=== PATIENT | male | born 1950 | race Caucasian/White ===

== ENCOUNTER 2017-04-13 10:12 | Inpatient (IN) | payer OTHER ==
[~2017-04-13] VITALS: Ht 167.6 cm; Wt 85.1 kg
[2017-04-13] VITALS (10 sets, daily range): BP systolic 103–146; BP diastolic 48–82
[~2017-04-13 10:12] MED LIST: ADVAIR 250/501 EA INH; ALBUTEROL0.09 MG/A1 INH; ALBUTEROL0.09 MG/A2 IH; AMIODARONE PO; ASMANEX TW0.22 MG/A1 IH; ASPIR 8181 MG PO; ASPIRIN DELAYE325 MG PO; ASPIRIN81 M1 PO; CHOLESTEROL PO; CORDROL20 MG PO; CRESTOR40 MG PO; Clopidogrel75 MG PO; FOLIC ACID PO; FOLIC ACID1 MG PO; HEART PILL PO; HYDROCODONE BIT1 T11 PO; LASIX40 MG PO; LISINOPRIL PO; LISINOPRIL5 MG PO; METOPROLOL SUC100 M2 PO; METOPROLOL SUC200 MG PO; NICOTINE PO; OMEPRAZOLE20 MG PO; PENICILLIN250 MG PO; PLAVIX75 MG PO; PREDNISONE10 MG PO; PRILOSEC20 MG PO; SPIRONOLACTONE25 MG PO; STOMACH PILL PO; TIKOSYN0.5 MG PO; WARFARIN2 MG PO; ZITHROMAX250 MG PO; [UNRECOGNIZED DRUG - OTHER] PO
[2017-04-13] MEDS ORDERED: VITAMIN B-11 TAB PO (10:36)
[2017-04-13] MEDS ORDERED: CRESTOR10 M1 PO (10:36)
[2017-04-13] MEDS ORDERED: MAGNESIUM OXID420 M1 PO (10:37)
[2017-04-13] MEDS ORDERED: VITAMIN D50000 UNIT PO (10:38)
[2017-04-13] MEDS ORDERED: ALDACTONE25 M1 PO (10:39)
[2017-04-13 10:46] LABS: BASO # 0.1 10*3/uL (0.0-0.1); BASO % 0.7 % (0.0-1.0); EOS # 0.4 10*3/uL (0.0-0.4); LYMPH # 1.2 10*3/uL (1.3-4.4); LYMPH % 14.2 % (27.0-41.0); MEAN CELL VOLUME 74.8 fl (80.0-94.0); MEAN CORPUSCULAR HGB 22.7 pg (27.0-31.0); MEAN CORPUSCULAR HGB CONC 30.3 g/dl (33.0-37.0); MEAN PLATELET VOLUME 9.2 fl (9.6-12.3); MONO # 0.7 10*3/uL (0.1-1.0); MONO % 8.9 % (3.0-9.0); NEUT # 5.9 10*3/uL (2.3-7.9); PLATELET COUNT AUTOMATED 262 10*3/uL (130-400); RED BLOOD COUNT 4.41 10*6/uL (4.50-5.90); RED CELL DISTRI WIDTH 19.1 % (0-14.5); WHITE BLOOD COUNT 8.3 10*3/uL (4.8-10.8)
[2017-04-13 10:55] LABS: PROTHROMBIN TIME 10.7 SECONDS (9.0-12.4)
[2017-04-13 11:01] LABS: ALKALINE PHOSPHATASE 105 U/L (45-117); BILIRUBIN, TOTAL 0.9 mg/dl (0.2-1.0); BUN 8 mg/dl (7-24); CARBON DIOXIDE 28 mmol/L (21-32); CHLORIDE 96 mmol/L (98-107); CKMB 1.1 ng/ml (0.5-3.6); CPK 105 U/L (39-308); EST GLOM FILT AFRICAN AMERICAN > 60 ml/min; GLUCOSE 98 mg/dL (65-99); MAGNESIUM 1.6 mg/dL (1.5-2.1); POTASSIUM 3.7 mmol/L (3.5-5.1); SGOT/AST 70 IU/L (3-35); SGPT/ALT 84 U/L (12-78); SODIUM 134 mmol/L (136-145); TOTAL PROTEIN 8.2 gm/dL (6.4-8.2)
[2017-04-13 11:03] LABS: TROPONIN I < 0.015 ng/ml (<0.045)
[2017-04-13] MEDS ORDERED: IPRATROPIUM BR2.5 ML INH (15:13)
[2017-04-13] MEDS ORDERED: PROAIR HFA8.5 GM INH (15:14)
[2017-04-13] MEDS ORDERED: Ventolin 02.5 MG/3 M INH (15:15)
[2017-04-13] MEDS ORDERED: ASPIRIN CHEWABL81 MG PO (15:17)
[2017-04-14] VITALS: BP 109/47
[2017-04-14 06:22] LABS: BASO # 0.1 10*3/uL (0.0-0.1); BASO % 0.6 % (0.0-1.0); EOS # 0.5 10*3/uL (0.0-0.4); EOS % 5.7 % (1.0-4.0); HEMATOCRIT 30.5 % (42.0-52.0); HEMOGLOBIN 9.3 g/dl (14.0-18.0); LYMPH # 1.3 10*3/uL (1.3-4.4); LYMPH % 15.6 % (27.0-41.0); MEAN CELL VOLUME 74.8 fl (80.0-94.0); MEAN CORPUSCULAR HGB 22.8 pg (27.0-31.0); MEAN CORPUSCULAR HGB CONC 30.5 g/dl (33.0-37.0); MEAN PLATELET VOLUME 9.2 fl (9.6-12.3); MONO # 0.7 10*3/uL (0.1-1.0); MONO % 8.5 % (3.0-9.0); NEUT # 5.7 10*3/uL (2.3-7.9); NEUT % 69.2 % (47.0-73.0); PLATELET COUNT AUTOMATED 224 10*3/uL (130-400); RED BLOOD COUNT 4.08 10*6/uL (4.50-5.90); RED CELL DISTRI WIDTH 19.2 % (0-14.5); WHITE BLOOD COUNT 8.2 10*3/uL (4.8-10.8)
[2017-04-14 06:28] LABS: PROTHROMBIN TIME 10.8 SECONDS (9.0-12.4)
[2017-04-14 06:43] LABS: ALBUMIN 3.5 gm/dl (3.1-4.5); BILIRUBIN, TOTAL 1.1 mg/dl (0.2-1.0); BUN 11 mg/dl (7-24); CARBON DIOXIDE 27 mmol/L (21-32); CHLORIDE 100 mmol/L (98-107); EST GLOM FILT AFRICAN AMERICAN > 60 ml/min; GLUCOSE 100 mg/dL (65-99); MAGNESIUM 1.6 mg/dL (1.5-2.1); PHOSPHOROUS 3.5 mg/dL (2.5-4.9); SGPT/ALT 68 U/L (12-78); SODIUM 137 mmol/L (136-145); TOTAL PROTEIN 7.1 gm/dL (6.4-8.2); TRIGLYCERIDES 76 mg/dl (<150); VLDL CHOLESTEROL 15 mg/dL (6-40)
[2017-04-14 06:50] LABS: ALKALINE PHOSPHATASE 91 U/L (45-117); CHOLESTEROL 171 mg/dL (<200); HDL CHOLESTEROL 53 mg/dl (40-60); LDL CHOLESTEROL 103 mg/dL (9-159); SGOT/AST 63 IU/L (3-35)
[2017-04-14 08:00] VITALS: BP 128/50
[2017-04-14 09:31] LABS: FOLIC ACID 21.76 ng/mL (>5.38); VITAMIN D, 25-HYDROXY 41.8 ng/mL (30-100)
[2017-04-14 12:00] VITALS: BP 121/76
[2017-04-14 16:00] VITALS: BP 111/63
[2017-04-14 20:00] VITALS: BP 120/78
[2017-04-15] VITALS: BP 119/75
[2017-04-15 06:19] LABS: RETICULOCYTE % 1.87 % (0.50-2.50)
[2017-04-15 06:29] LABS: IRF 25.5 % (2.4-13.3); RET-He 25.5 pg (32.1-37.9)
[2017-04-15 08:00] VITALS: BP 121/66
[2017-04-15] MEDS ORDERED: KEFLEX500 M1 PO (11:50)
[2017-04-15 12:00] VITALS: BP 113/63
[2017-04-15 16:00] VITALS: BP 107/58
[2017-04-15 20:00] VITALS: BP 110/62
[2017-04-16] VITALS: BP 116/65
[2017-04-16 08:00] VITALS: BP 128/69
== END 2017-04-16 12:43 | disposition home or self-care (01) | DRG 603 ==
LOC: ED 10:12 → 4E 13:50 → EDHOLD 13:50 → 4E 14:24
PROVIDERS: Emergency Medicine; Hospitalist; Internal Medicine
DX: L03.115 Cellulitis of right lower limb (principal); I11.0 Hypertensive heart disease with heart failure; E87.1 Hypo-osmolality and hyponatremia; I50.42 Chronic combined systolic (congestive) and diastolic (congestive) heart failure; D50.9 Iron deficiency anemia, unspecified; J44.9 Chronic obstructive pulmonary disease, unspecified; F10.10 Alcohol abuse, uncomplicated; I25.10 Atherosclerotic heart disease of native coronary artery without angina pectoris; K21.9 Gastro-esophageal reflux disease without esophagitis; E78.2 Mixed hyperlipidemia; R74.0 Nonspecific elevation of levels of transaminase and lactic acid dehydrogenase [LDH]; I25.2 Old myocardial infarction; Z90.49 Acquired absence of other specified parts of digestive tract; Z95.5 Presence of coronary angioplasty implant and graft; Z87.891 Personal history of nicotine dependence; Z95.810 Presence of automatic (implantable) cardiac defibrillator; Z79.02 Long term (current) use of antithrombotics/antiplatelets; Z79.899 Other long term (current) drug therapy; Z88.8 Allergy status to other drugs, medicaments and biological substances; Z91.048 Other nonmedicinal substance allergy status; Z82.49 Family history of ischemic heart disease and other diseases of the circulatory system; Z80.8 Family history of malignant neoplasm of other organs or systems

== ENCOUNTER 2017-04-25 15:11 | Emergency (ER) | payer OTHER ==
[~2017-04-25] VITALS: Wt 84.4 kg
[~2017-04-25 15:11] MED LIST changes: +ALDACTONE25 M1 PO; +ASPIRIN CHEWABL81 MG PO; +CRESTOR10 M1 PO; +IPRATROPIUM BR2.5 ML INH; +KEFLEX500 M1 PO; +MAGNESIUM OXID420 M1 PO; +PROAIR HFA8.5 GM INH; +VITAMIN B-11 TAB PO; +VITAMIN D50000 UNIT PO; +Ventolin 02.5 MG/3 M INH
[2017-04-25 15:53] LABS: BASO % 0.5 % (0.0-1.0); EOS # 0.2 10*3/uL (0.0-0.4); EOS % 2.6 % (1.0-4.0); HEMATOCRIT 32.3 % (42.0-52.0); HEMOGLOBIN 9.8 g/dl (14.0-18.0); LYMPH % 11.6 % (27.0-41.0); MEAN CELL VOLUME 75.1 fl (80.0-94.0); MEAN CORPUSCULAR HGB 22.8 pg (27.0-31.0); MEAN CORPUSCULAR HGB CONC 30.3 g/dl (33.0-37.0); MEAN PLATELET VOLUME 9.2 fl (9.6-12.3); MONO # 0.9 10*3/uL (0.1-1.0); MONO % 10.5 % (3.0-9.0); NEUT # 6.3 10*3/uL (2.3-7.9); NEUT % 74.3 % (47.0-73.0); PLATELET COUNT AUTOMATED 313 10*3/uL (130-400); RED CELL DISTRI WIDTH 19.3 % (0-14.5); WHITE BLOOD COUNT 8.5 10*3/uL (4.8-10.8)
[2017-04-25 16:08] LABS: ALBUMIN 3.8 gm/dl (3.1-4.5); ALKALINE PHOSPHATASE 123 U/L (45-117); BILIRUBIN, TOTAL 0.4 mg/dl (0.2-1.0); BUN 11 mg/dl (7-24); CARBON DIOXIDE 29 mmol/L (21-32); CHLORIDE 102 mmol/L (98-107); EST GLOM FILT AFRICAN AMERICAN > 60 ml/min; GLUCOSE 104 mg/dL (65-99); POTASSIUM 3.6 mmol/L (3.5-5.1); SGOT/AST 65 IU/L (3-35); SGPT/ALT 72 U/L (12-78); SODIUM 138 mmol/L (136-145); TOTAL PROTEIN 8.3 gm/dL (6.4-8.2)
[2017-04-25] MEDS ORDERED: CLINDAMYCIN HC300 MG PO (16:46)
== END 2017-04-25 18:11 | disposition home or self-care (01) ==
LOC: ED 15:11
PROVIDERS: Physician Assistant
DX: L03.115 Cellulitis of right lower limb (principal); Z87.891 Personal history of nicotine dependence; Z79.82 Long term (current) use of aspirin; Z79.899 Other long term (current) drug therapy; Z88.6 Allergy status to analgesic agent

== ENCOUNTER 2017-07-14 01:56 | Inpatient (IN) | payer OTHER ==
[~2017-07-14] VITALS: Ht 152.4 cm; Wt 84.1 kg
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
[~2017-07-14 01:56] MED LIST changes: +CLINDAMYCIN HC300 MG PO
[2017-07-14 02:08] VITALS: BP 114/101
[2017-07-14 03:01] LABS: HEMOGLOBIN 14.6 g/dl (14.0-18.0); MEAN CELL VOLUME 84.6 fl (80.0-94.0); MEAN CORPUSCULAR HGB 27.4 pg (27.0-31.0); MEAN CORPUSCULAR HGB CONC 32.4 g/dl (33.0-37.0); MEAN PLATELET VOLUME 9.1 fl (9.6-12.3); PLATELET COUNT AUTOMATED 229 10*3/uL (130-400); RED BLOOD COUNT 5.32 10*6/uL (4.50-5.90); WHITE BLOOD COUNT 10.8 10*3/uL (4.8-10.8)
[2017-07-14 03:23] LABS: ATYPICAL LYMPHS 2 % (0-0); MICROCYTOSIS SLIGHT; PLATELET SUFFICIENCY NORMAL (NORMAL); TARGET CELLS FEW; TOTAL CELLS COUNTED 100 #CELLS
[2017-07-14 03:24] LABS: OVALOCYTES FEW
[2017-07-14 03:26] LABS: ALBUMIN 3.7 gm/dl (3.1-4.5); ALKALINE PHOSPHATASE 117 U/L (45-117); BUN 12 mg/dl (7-24); CHLORIDE 98 mmol/L (98-107); CREATININE 0.89 mg/dL (0.70-1.30); POTASSIUM 3.5 mmol/L (3.5-5.1); SGOT/AST 75 IU/L (3-35); SGPT/ALT 116 U/L (12-78); SODIUM 133 mmol/L (136-145); TOTAL PROTEIN 8.1 gm/dL (6.4-8.2)
[2017-07-14 03:45] VITALS: BP 124/74
--- NOTE | 2017-07-14 03:45 | NUR ---
MSTime: [id number] A 66 year old MALE admitted to 4E under services of ALFREDITO INGRAM DO. Pt. arrived via ambulatory from ER. Chief complaint: INFLAMMED REDDENED FOOT, ANTIBIOTICS NOT WORKING. JEAN CLAUDE SHERWOOD
--- NOTE | 2017-07-14 04:26 | NUR ---
MEDICATION REQUISITION REVIEWED AND MEDICATIONS UPDATED TO PATIENTS BEST KNOWLEGDE. [facility] STATES WILL BE ABLE TO GIVE HIS MEDICATION INFORMATION : [phone]
--- NOTE | 2017-07-14 05:30 | NUR ---
NO WOUND ORDERS PUT IN Y DOCTOR. WOUND CULTURE NOT DONE IN ER THERE IS NO DRAINAGE.
[2017-07-14 05:43] LABS: BUN 12 mg/dl (7-24); CHLORIDE 101 mmol/L (98-107); CHOLESTEROL 151 mg/dL (<200); CREATININE 0.83 mg/dL (0.70-1.30); HDL CHOLESTEROL 39 mg/dl (40-60); LDL CHOLESTEROL 88 mg/dL (9-159); PHOSPHOROUS 3.3 mg/dL (2.5-4.9); POTASSIUM 3.2 mmol/L (3.5-5.1); SODIUM 136 mmol/L (136-145); TRIGLYCERIDES 120 mg/dl (<150); VLDL CHOLESTEROL 24 mg/dL (6-40)
--- NOTE | 2017-07-14 05:45 | NUR ---
DR. SIBLEY AWARE OF LACTIC ACID RESULT.
[2017-07-14 06:11] LABS: ACT PARTIAL THROMBO TIME 24.3 SECONDS (20.8-31.5)
[2017-07-14 06:13] LABS: HEMATOCRIT 40.5 % (42.0-52.0); HEMOGLOBIN 13.2 g/dl (14.0-18.0); MEAN CORPUSCULAR HGB CONC 32.6 g/dl (33.0-37.0); MEAN PLATELET VOLUME 9.5 fl (9.6-12.3); PLATELET COUNT AUTOMATED 212 10*3/uL (130-400); RED BLOOD COUNT 4.71 10*6/uL (4.50-5.90); WHITE BLOOD COUNT 8.3 10*3/uL (4.8-10.8)
[2017-07-14 06:59] LABS: PLATELET SUFFICIENCY NORMAL (NORMAL); TOTAL CELLS COUNTED 100 #CELLS
[2017-07-14 07:46] LABS: VITAMIN D, 25-HYDROXY 39.4 ng/mL (30-100)
[2017-07-14 08:00] VITALS: BP 92/50
--- NOTE | 2017-07-14 10:25 | NUR ---
DEEDEE GORDILLO [id number] Please refer to the physician's history and physical for past medical history, comorbid conditions, and allergies. Diagnosis: CELLULITIS FAILURE OF OP TREATMENT Andrea Score: 22,LOW OR NO RISK WOUND DESCRIPTIONS: Location of the wound: dorsal left foot Type of wound: trauma Thickness: Partial Size: 2.5cm x 1cm x <0.1cm Tunneling: none Undermining: none Sinus Tract: none Presence of Exudate: none Amount: None Color: Red, brown Odor: None Periwound Skin Appearance: Normal Wound edges: scabbed Pain (associated with wound): Tender to touch How does patient state this happened? Patient states he scratched his foot approximately 5 days ago with his fingernail If wound is on legs/feet or hands, capillary refill time, pulses, color temp, sensation: Capillary refill <3 seconds. Pulse present Surface the patient is resting on: Position Pro SKIN PREVENTION RECOMMENDATION: 1. Pressure redistribution support surface as appropriate 2. Elevate heels 3. Remove boots/TEDS every shift and reapply 4. Head of bed 30 degrees as tolerated 5. Assess nutrition and hydration 6. Manage moisture 7. Avoid the use of containment devices while in bed 8. Use absorptive products on surfaces limit layers of linens on bed 9. Turn and reposition every 1-2 hours in bed and every 1 hour in chair as tolerated 10. Weight shifts every 15 minutes while up in chair 11. Offloading with pillows or device to keep heels elevated off bed 12. Monitor skin at least every shift 13. Inspect under medical devices twice a day WOUND TREATMENT RECOMMENDATIONS: Consult Podiatry. Patient stated he follows a data acquisition technician in [place] but was unable to recall the doctor's name. Dr. Macdonald notified of recommendation
[2017-07-14 12:00] VITALS: BP 120/52
[2017-07-14] MEDS ORDERED: METOPROLOL SUC100 M2 PO (15:28)
--- NOTE | 2017-07-14 15:31 | NUR ---
[facility] CALL[facility] TO [facility] LIST. DR GAVIN NOTIFIED. PLACING METOPROLOL ON HOLD.
[2017-07-14 16:00] VITALS: BP 128/64
--- NOTE | 2017-07-14 20:23 | NUR ---
PATIENT MEDICATED WITH PRN NORCO ORDERED FOR C/O LEFT FOOT PAIN RATED A 7
--- NOTE | 2017-07-14 20:25 | NUR ---
PATIENT RESTING COMFORTABLY IN BED. HE IS A&OX3, COOPERATIVE WITH CARE, C/O INTERMITTENT LEFT FOOT PAIN RATED A 7. DENIES ANY SOB, RESPIRATIONS EASY/REG ON RA. FLUIDS MAINTAINED PER ORDER. LEFT FOOT IS RED, SWOLLEN AND WARM TO TOUCH. HE HAS A SCRATCH TO THE TOP OF HIS LEFT FOOT, IT IS SCABBED OVER. CALL LIGHT IS IN REACH.WILL MONITOR.
--- NOTE | 2017-07-14 20:51 | NUR ---
PATIENT REQUESTING NICORETTE GUM. SMOKES 1/2 PPD. NEW ORDERS RECEIVED.
[2017-07-14 21:00] VITALS: BP 116/58
--- NOTE | 2017-07-14 21:30 | NUR ---
EARLIER NORCO EFFECTIVE PER PATIENT
--- NOTE | 2017-07-15 01:12 | NUR ---
24 HR CHART CHECK COMPLETE
--- NOTE | 2017-07-15 02:40 | NUR ---
PATIENT SLEEPING, NO SXS OF DISTRESS. FLUIDS MAINTAINED PER ORDER. CALL LIGHT IN REACH. WILL MONITOR.
--- NOTE | 2017-07-15 06:21 | NUR ---
PATIENT SLEPT T/O SHIFT. NO SXS OF DISTRESS NOTED. FLUIDS MAINTAINED PER ORDER. CALL LIGHT IN REACH.
[2017-07-15 08:00] VITALS: BP 133/63
--- NOTE | 2017-07-15 11:00 | NUR ---
CONSULT CALLED TO DR BELL.
[2017-07-15 16:00] VITALS: BP 144/81
--- NOTE | 2017-07-15 17:00 | NUR ---
DR GAVIN NOTIFIED OF PT REPORTED CHEST PAIN/ PRESSURE TO LEFT SIDE OF CHEST RATED 3-4/10. VITALS REPORTED 145/68, 74 AND 99 % RA.
--- NOTE | 2017-07-15 17:14 | NUR ---
PT GIVEN 325 MG BABY ASPIRIN TO CHEW AND ONE 0.4 MG NITRO TAB FOR 3-4/10 CHEST PAIN. PAIN/PRESSURE RESOLVED COMPLETELY WITHIN 2 MINUTES.
--- NOTE | 2017-07-15 17:30 | NUR ---
ICU REQUEST FOR NEW ULTRASOUND GUIDED IV CATHETER PLACEMENT. PT REPRTS HE IS VERY DIFFICULT TO DRAW LABS ON AND PLACE CATHETERS. ELIER MAGAÑA FROM ICU PLACED NEW CATH TO RIGHT HAND.
--- NOTE | 2017-07-15 21:30 | NUR ---
PATIENT RECLINED IN CHAIR WATCHING FOOTBALL GAMES. NO S/S OF DISTRESS. CALL LIGHT WITHIN REACH. LEFT LEG RED WITH SLIGHT WARMTH, RIGHT LEG/FOOT, SMALL AREA ON TOP OF FOOTTHAT IS DISCOLORED, AREA COOL TO THE TOUCH. ATB GIVEN PER ORDER.
[2017-07-16] VITALS: BP 125/59
--- NOTE | 2017-07-16 01:06 | NUR ---
24 HR chart check completed.
[2017-07-16 08:00] VITALS: BP 146/70
--- NOTE | 2017-07-16 08:15 | NUR ---
24 HR chart check completed.
[2017-07-16 08:43] LABS: HEMATOCRIT 42.4 % (42.0-52.0); HEMOGLOBIN 13.7 g/dl (14.0-18.0); MEAN CELL VOLUME 86.5 fl (80.0-94.0); MEAN CORPUSCULAR HGB CONC 32.3 g/dl (33.0-37.0); MEAN PLATELET VOLUME 9.2 fl (9.6-12.3); PLATELET COUNT AUTOMATED 176 10*3/uL (130-400); WHITE BLOOD COUNT 6.6 10*3/uL (4.8-10.8)
--- NOTE | 2017-07-16 09:00 | NUR ---
Echocardiographer in to talk to patient. Patient states lives at home with alone. There are few steps in the home. Physician: domingo [facility] Home health services: none Patient's level of ADLs: INDEPENDENT Patient has working utilities: all working DME: none Follow-up physician's appointment after d/c: will be made by hospitalist nurse director upon discharge Does patient want to access PORTAL?: no Discharge plan discussed with patient, patient lives at home alone, states he is independent in adls and ambulation, drives, patient states he will be going back home and denies any home needs. SAUNDRA FERNANDEZ
[2017-07-16 09:01] LABS: ALBUMIN 3.4 gm/dl (3.1-4.5); ALKALINE PHOSPHATASE 100 U/L (45-117); BUN 8 mg/dl (7-24); CHLORIDE 107 mmol/L (98-107); CREATININE 0.93 mg/dL (0.70-1.30); POTASSIUM 3.8 mmol/L (3.5-5.1); SGOT/AST 54 IU/L (3-35); SGPT/ALT 90 U/L (12-78); SODIUM 141 mmol/L (136-145); TOTAL PROTEIN 7.2 gm/dL (6.4-8.2); TROPONIN I 0.019 ng/ml (<0.045)
[2017-07-16 09:34] LABS: PLATELET SUFFICIENCY NORMAL (NORMAL); TOTAL CELLS COUNTED 100 #CELLS
--- NOTE | 2017-07-16 11:55 | NUR ---
DR FREEMAN ROUNDED AND STATED IT WAS OK TO D/C PT FROM THEIR STANDPOINT AND HAVE PT CALL FOR APPT FOR F/U IN ONE WEEK.
--- NOTE | 2017-07-16 14:12 | NUR ---
patient's clinicals faxed to Madai case maker at [facility]
[2017-07-16] MEDS ORDERED: DOXYCYCLINE100 M3 PO (15:32)
[2017-07-16 16:00] VITALS: BP 145/77
--- NOTE | 2017-07-16 16:12 | NUR ---
PT REFUSED D/C PHOTOS.
--- NOTE | 2017-07-16 16:55 | NUR ---
Discharge instructions reviewed with patient/family. Patient receptive and verbalizes understanding. Follow-up care arranged. Written instructions given to patient/family. SAVI OSPINA
== END 2017-07-16 17:05 | disposition home or self-care (01) | DRG 603 ==
LOC: ED 01:56 → 4E 02:30 → EDHOLD 02:30 → 4E 02:41
PROVIDERS: Internal Medicine; Student in an Organized Health Care Education/Training Program; ADMIT Internal Medicine
DX: L03.116 Cellulitis of left lower limb (principal); E87.2 Acidosis; E66.01 Morbid (severe) obesity due to excess calories; I50.9 Heart failure, unspecified; I11.0 Hypertensive heart disease with heart failure; E87.1 Hypo-osmolality and hyponatremia; E78.5 Hyperlipidemia, unspecified; I25.10 Atherosclerotic heart disease of native coronary artery without angina pectoris; J44.9 Chronic obstructive pulmonary disease, unspecified; R74.0 Nonspecific elevation of levels of transaminase and lactic acid dehydrogenase [LDH]; K21.9 Gastro-esophageal reflux disease without esophagitis; D64.9 Anemia, unspecified; E87.6 Hypokalemia; F10.10 Alcohol abuse, uncomplicated; E83.41 Hypermagnesemia; Z88.6 Allergy status to analgesic agent; Z91.048 Other nonmedicinal substance allergy status; Z79.899 Other long term (current) drug therapy; I25.2 Old myocardial infarction; Z95.0 Presence of cardiac pacemaker; Z95.5 Presence of coronary angioplasty implant and graft; Z87.891 Personal history of nicotine dependence; Z82.49 Family history of ischemic heart disease and other diseases of the circulatory system; Z80.8 Family history of malignant neoplasm of other organs or systems; Z79.82 Long term (current) use of aspirin; Z68.36 Body mass index [BMI] 36.0-36.9, adult

== ENCOUNTER → 2017-07-20 | Outpatient (CLI) | payer OTHER ==
[~2017-07-20] MED LIST changes: +DOXYCYCLINE100 M3 PO
== END | disposition home or self-care (01) ==
LOC: US 07-19 15:30
DX: R09.89 Other specified symptoms and signs involving the circulatory and respiratory systems (principal)

== ENCOUNTER 2019-07-08 22:29 | Inpatient (IN) | payer MEDICARE ==
[~2019-07-08] VITALS: Ht 157.4 cm; Wt 77.1 kg
[~2019-07-08 22:29] MED LIST changes: -MAGNESIUM OXID420 M1 PO; +MAGNESIUM400 M1 PO; +PRILOSEC20 M1 PO; -PRILOSEC20 MG PO
[2019-07-08 22:30] VITALS: BP 175/101
[2019-07-08 22:56] LABS: HEMATOCRIT 46.4 % (42.0-52.0); HEMOGLOBIN 14.9 g/dl (14.0-18.0); MEAN CELL VOLUME 91.5 fl (80.0-94.0); MEAN CORPUSCULAR HGB 29.4 pg (27.0-31.0); MEAN CORPUSCULAR HGB CONC 32.1 g/dl (33.0-37.0); PLATELET COUNT AUTOMATED 198 10*3/uL (130-400); RED BLOOD COUNT 5.07 10*6/uL (4.50-5.90); RED CELL DISTRI WIDTH 14.7 % (0-14.5)
[2019-07-08 23:12] LABS: ALBUMIN 4.5 gm/dl (3.1-4.5); ALKALINE PHOSPHATASE 133 U/L (45-117); BUN 15 mg/dl (7-24); CHLORIDE 103 mmol/L (98-107); CREATININE 1.11 mg/dL (0.70-1.30); POTASSIUM 3.3 mmol/L (3.5-5.1); SGOT/AST 40 IU/L (3-35); SGPT/ALT 66 U/L (12-78); SODIUM 137 mmol/L (136-145); TOTAL PROTEIN 8.9 gm/dL (6.4-8.2)
[2019-07-08 23:15] LABS: TROPONIN I < 0.015 ng/ml (<0.045)
[2019-07-08 23:20] LABS: ACT PARTIAL THROMBO TIME 27.8 SECONDS (20.0-32.1); BASOPHILS 2 % (0-1); TOTAL CELLS COUNTED 100 #CELLS
[2019-07-08 23:21] LABS: PLATELET SUFFICIENCY NORMAL (NORMAL)
[2019-07-09 00:24] VITALS: BP 122/57
--- NOTE | 2019-07-09 00:39 | NUR ---
BLOOD SUGAR 79.
--- NOTE | 2019-07-09 01:03 | NUR ---
A 68, admitted to , under the services of KISHORE Mendes DO with a diagnosis of CHF. Chief complaint is EDEMA. Patient arrived via stretcher from ER. Monitor applied. Initial assessment completed. Vital signs taken and recorded. KISHORE MENDES DO notified of admission to the unit. Orders received. See assessment for past medical history, medications and allergies. Patient and/or family oriented to unit. [facility]. Clothing/patient valuable form completed. VICKEY YOUNG
[2019-07-09 01:05] VITALS: BP 136/78
--- NOTE | 2019-07-09 01:15 | NUR ---
WAS TOLD IN REPORT BY ARCHANA DAMICO THAT PATIENT'S BLOOD SUGAR IS 79. PATIENT REFUSING ANY DRINKS OR FOOD
--- NOTE | 2019-07-09 01:32 | NUR ---
PATIENT STATED HE WAS LEAVING AGAINST MEDICAL ADVICE. PATIENT STATES HE HAS TO TAKE A FRIEND TO [place] IN THE MORNING AND HE CANNOT BACK OUT ON HIM. PATIENT WAS EDUCATED ON THE IMPORTANCE OF STAYING FOR FURTHER TESTING AND TO RECIEVE MEDICATIONS. PATIENT VERBALIZED UNDERSTANDING BUT STILL REFUSED. HEP LOCK WAS REMOVED WITH CATHETER INTACT. NO BLEEDING NOTED. MEDICATIONS AND BELONGINGS WERE SENT HOME WITH PATIENT. DR SIBLEY AND QUALITY ASSURANCE MANAGER ODALYS MADE AWARE. THIS RN AMBULATED WITH PATIENT TO THE ER WHERE HE LEFT IN HIS PRIVATE VEHICLE. PATIENT WAS ADVISED TO RETURN TO EMERGENCY ROOM IF HE EXPERIENCED ANY CHEST PAIN OR SHORTNESS OF BREATH. PATIENT VERBALIZED UNDERSTANDING.
== END 2019-07-09 01:32 | disposition left against medical advice (07) | DRG 293 ==
LOC: ED 22:29 → EDHOLD 07-09 00:33 → 5E 07-09 00:54
PROVIDERS: Emergency Medicine; ADMIT Family Medicine
DX: I11.0 Hypertensive heart disease with heart failure (principal); I25.10 Atherosclerotic heart disease of native coronary artery without angina pectoris; J44.9 Chronic obstructive pulmonary disease, unspecified; K21.9 Gastro-esophageal reflux disease without esophagitis; I50.20 Unspecified systolic (congestive) heart failure; Z53.29 Procedure and treatment not carried out because of patient's decision for other reasons; E78.5 Hyperlipidemia, unspecified; Z87.891 Personal history of nicotine dependence; Z88.6 Allergy status to analgesic agent; Z88.8 Allergy status to other drugs, medicaments and biological substances; Z91.048 Other nonmedicinal substance allergy status; Z79.82 Long term (current) use of aspirin; I25.2 Old myocardial infarction; Z90.49 Acquired absence of other specified parts of digestive tract; Z95.5 Presence of coronary angioplasty implant and graft; Z95.0 Presence of cardiac pacemaker; Z82.49 Family history of ischemic heart disease and other diseases of the circulatory system; Z80.0 Family history of malignant neoplasm of digestive organs

== ENCOUNTER 2019-08-12 20:10 | Emergency (ER) | payer MEDICARE ==
[~2019-08-12] VITALS: Ht 160 cm; Wt 77.1 kg
[~2019-08-12 20:10] MED LIST changes: +MAGNESIUM OXID420 M1 PO; -MAGNESIUM400 M1 PO; -PRILOSEC20 M1 PO; +PRILOSEC20 MG PO
== END 2019-08-12 22:25 | disposition home or self-care (01) ==
LOC: ED 20:10
DX: S56.912A Strain of unspecified muscles, fascia and tendons at forearm level, left arm, initial encounter (principal); S30.0XXA Contusion of lower back and pelvis, initial encounter; S50.12XA Contusion of left forearm, initial encounter; I25.10 Atherosclerotic heart disease of native coronary artery without angina pectoris; K21.9 Gastro-esophageal reflux disease without esophagitis; I25.2 Old myocardial infarction; E66.9 Obesity, unspecified; J44.9 Chronic obstructive pulmonary disease, unspecified; I50.9 Heart failure, unspecified; I11.0 Hypertensive heart disease with heart failure; E78.00 Pure hypercholesterolemia, unspecified; Z88.6 Allergy status to analgesic agent; Z88.8 Allergy status to other drugs, medicaments and biological substances; Z79.899 Other long term (current) drug therapy; Z79.82 Long term (current) use of aspirin; Z87.891 Personal history of nicotine dependence; W22.8XXA Striking against or struck by other objects, initial encounter; Y93.89 Activity, other specified; Y92.89 Other specified places as the place of occurrence of the external cause; Y99.8 Other external cause status

== ENCOUNTER 2019-08-20 18:46 | Inpatient (IN) | payer OTHER ==
[~2019-08-20] VITALS: Ht 157.4 cm; Wt 83.5 kg
[~2019-08-20 18:46] MED LIST changes: -MAGNESIUM OXID420 M1 PO; +MAGNESIUM400 M1 PO; +PRILOSEC20 M1 PO; -PRILOSEC20 MG PO
[2019-08-20 18:48] VITALS: BP 155/63
--- NOTE | 2019-08-20 19:11 | NUR ---
PT STATES HE JUST URINATED PRIOR TO COMING TO ER PT GIVEN WATER AND SPEC CUP
[2019-08-20 19:25] LABS: BASO # 0.1 10*3/uL (0.0-0.1); BASO % 0.4 % (0.0-1.0); EOS # 0.4 10*3/uL (0.0-0.4); EOS % 2.7 % (1.0-4.0); HEMATOCRIT 42.3 % (42.0-52.0); HEMOGLOBIN 13.5 g/dl (14.0-18.0); LYMPH # 2.1 10*3/uL (1.3-4.4); LYMPH % 15.8 % (27.0-41.0); MEAN CELL VOLUME 92.8 fl (80.0-94.0); MEAN CORPUSCULAR HGB 29.6 pg (27.0-31.0); MEAN CORPUSCULAR HGB CONC 31.9 g/dl (33.0-37.0); MEAN PLATELET VOLUME 9.7 fl (9.6-12.3); MONO # 1.3 10*3/uL (0.1-1.0); MONO % 9.8 % (3.0-9.0); NEUT # 9.2 10*3/uL (2.3-7.9); NEUT % 70.8 % (47.0-73.0); PLATELET COUNT AUTOMATED 203 10*3/uL (130-400); RED BLOOD COUNT 4.56 10*6/uL (4.50-5.90); RED CELL DISTRI WIDTH 14.6 % (0-14.5)
[2019-08-20 19:40] LABS: ALKALINE PHOSPHATASE 139 U/L (45-117); BUN 26 mg/dl (7-24); CHLORIDE 106 mmol/L (98-107); CREATININE 1.13 mg/dL (0.70-1.30); POTASSIUM 4.5 mmol/L (3.5-5.1); SGOT/AST 51 IU/L (3-35); SGPT/ALT 70 U/L (12-78); SODIUM 137 mmol/L (136-145)
[2019-08-20 19:50] LABS: INTERNATIONAL NORM RATIO 0.9 (2.0-3.5)
[2019-08-20 19:56] LABS: LIPASE 169 U/L (73-393)
[2019-08-20 22:31] VITALS: BP 143/77
--- NOTE | 2019-08-20 22:36 | NUR ---
PT CLAIMS HE HAS NO WOUNDS
--- NOTE | 2019-08-20 22:52 | NUR ---
UNABLE TO ACCESS IV SITE WILL HAVE ANOTHER RN EVAULUATED AND ATTEMPT
--- NOTE | 2019-08-20 23:09 | NUR ---
PT STATES STILL HAS LEFT SIDED CHEST PAIN RATES AT 5/10 PT STATES "ALMOST FEELS LIKE GAS"
[2019-08-20 23:30] VITALS: BP 141/76
--- NOTE | 2019-08-20 23:30 | NUR ---
The assessment has been completed. Time: 2229 A 69 year old MALE admitted to under services of ANIL PEARL DO, Pt. arrived via ambulatory from ER. Chief complaint: HEMATOMA L ARM,CHEST PAIN. HISSOM,MAY
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
--- NOTE | 2019-08-21 00:11 | NUR ---
DR GRUBER NOTIFIED PTS MED REC WAS UP TO DATE
--- NOTE | 2019-08-21 00:16 | NUR ---
DR MAN ANSWERING SERVICE NOTIFIED OF NEW CONSULT
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
--- NOTE | 2019-08-21 01:41 | NUR ---
Patient resting quietly with no c/o or s/s of discomfort. Respirations easy and regular. Vital signs stable. No overt distress. Call light within reach. HISSOM,MAY
--- NOTE | 2019-08-21 02:15 | NUR ---
PT COMPLAINS OF 6/10 LEFT ARM PAIN. MEDICATED PER ORDER. WILL MONITOR FOR RELIEF. VOICES NO OTHER CONCERNS AT THIS TIME. RESTING IN BED. CALL LIGHT WITHIN REACH
--- NOTE | 2019-08-21 04:29 | NUR ---
24 HR chart check completed.
--- NOTE | 2019-08-21 04:37 | NUR ---
PT COMPLAINS OF 8/10 LEFT ARM PAIN. MEDICATED PER ORDER. WILL MONITOR FOR RELIEF. VOICES NO OTHER CONCERNS AT THIS TIME. RESTING IN BED. CALL LIGHT WITHIN REACH
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
--- NOTE | 2019-08-21 05:41 | NUR ---
MORPHINE EFFECTIVE PER PT
[2019-08-21 06:02] LABS: ALBUMIN 3.7 gm/dl (3.1-4.5); ALKALINE PHOSPHATASE 124 U/L (45-117); BUN 23 mg/dl (7-24); CHLORIDE 104 mmol/L (98-107); CHOLESTEROL 161 mg/dL (<200); CREATININE 0.98 mg/dL (0.70-1.30); HDL CHOLESTEROL 42 mg/dl (40-60); LDL CHOLESTEROL 96 mg/dL (9-159); PHOSPHOROUS 3.5 mg/dL (2.5-4.9); POTASSIUM 3.9 mmol/L (3.5-5.1); SGOT/AST 41 IU/L (3-35); SGPT/ALT 68 U/L (12-78); SODIUM 138 mmol/L (136-145); TOTAL PROTEIN 7.4 gm/dL (6.4-8.2); TRIGLYCERIDES 115 mg/dl (<150); VLDL CHOLESTEROL 23 mg/dL (6-40)
[2019-08-21 06:13] LABS: BASO % 0.4 % (0.0-1.0); EOS # 0.5 10*3/uL (0.0-0.4); EOS % 4.4 % (1.0-4.0); HEMOGLOBIN 13.3 g/dl (14.0-18.0); LYMPH # 2.1 10*3/uL (1.3-4.4); LYMPH % 19.3 % (27.0-41.0); MEAN CELL VOLUME 93.1 fl (80.0-94.0); MEAN CORPUSCULAR HGB 29.5 pg (27.0-31.0); MEAN CORPUSCULAR HGB CONC 31.7 g/dl (33.0-37.0); MEAN PLATELET VOLUME 10.2 fl (9.6-12.3); MONO # 1.1 10*3/uL (0.1-1.0); MONO % 10.2 % (3.0-9.0); NEUT % 65.3 % (47.0-73.0); PLATELET COUNT AUTOMATED 182 10*3/uL (130-400); RED BLOOD COUNT 4.51 10*6/uL (4.50-5.90); RED CELL DISTRI WIDTH 14.6 % (0-14.5); WHITE BLOOD COUNT 10.8 10*3/uL (4.8-10.8)
[2019-08-21 06:17] LABS: TROPONIN I < 0.015 ng/ml (<0.045)
--- NOTE | 2019-08-21 06:44 | NUR ---
SPOKE WITH DR BROUSSARD REGARDING NEW CONSULT.
[2019-08-21 08:00] VITALS: BP 120/64
--- NOTE | 2019-08-21 08:57 | NUR ---
Patient not available for Occupational Therapy evaluation as he is out of his room for testing. OT will attempt at a later time. Jolene Wilcox OTR/L
--- NOTE | 2019-08-21 09:00 | NUR ---
PHYSICAL THERAPY Attempeted to see pt for evaluation out of room for further testing of LLE will follow Emily Morris PT
--- NOTE | 2019-08-21 09:41 | NUR ---
MEDICATED WITH NORCO PER PRN ORDER FOR COMPLAINTS OF LEFT ARM PAIN, RATES PAIN 8/10. WILL CONTINUE TO MONITOR.
[2019-08-21] MEDS ORDERED: AMIODARONE HYD200 MG PO (09:53)
[2019-08-21] MEDS ORDERED: COREG12.5 M1 PO (09:54)
[2019-08-21] MEDS ORDERED: DIGOX125 MCG PO (09:57)
[2019-08-21] MEDS ORDERED: FISH OIL CONC1000 M1 PO (09:57)
[2019-08-21] MEDS ORDERED: EFFER-K20 MEQ PO (09:58)
[2019-08-21] MEDS ORDERED: MULTIVITAMINS1 EAC5 PO (09:59)
--- NOTE | 2019-08-21 10:01 | NUR ---
MED REC UPDATED WITH LIST PROVIDED BY PT, DR CRAIG INFORMED.
--- NOTE | 2019-08-21 10:40 | NUR ---
PHYSICAL THERAPY Eval completed pt is a low complexity 10034 independent with transfers and independent with amb no balance deficits noted. No skilled needs at this time recomend home with assist follow up per MD fercho MICHAUD, thank you. Emily Morris PT
--- NOTE | 2019-08-21 10:40 | NUR ---
Occupational THerapy evaluation completed on 4 with full eval to follow. PRecautions include LUE pain, forearm hematoma, negative xrays for fracture and per Dr. Fry, no activity restrictions for LUE, low complexity level 75879. REcommend OT per POC for edema control and AROM therapeutic exercise home exercise program. Patient educated in use of sling for pain managment but encouraged use of LUE for ADLs out of sling to promote AAROM and decrease stiffness. Recommend home alone w/ home health SN and OT as indicated. Thank you. Cyndie Wilcox OTR/Shaq
--- NOTE | 2019-08-21 10:55 | NUR ---
DR BROUSSARD IN TO SEE PT AT THIS TIME.
--- NOTE | 2019-08-21 11:55 | NUR ---
Tugboat Captain in to talk to patient. Patient states lives at HOME with ALONE. There are NO steps in the home. Physician: CHANDU GARCIA Pharmacy: [facility] Home health services: NONE Patient's level of ADLs: INDEPENDENT Patient has working utilities: YES DME: NONE Follow-up physician's appointment after d/c: WILL BE MADE BY HOSPITALIST NURSE DIRECTOR ON DISCHARGE Does patient want to access PORTAL?: NO Discharge plan PT LIVES AT HOME AT ALONE AND IS INDEPENDENT IN HIS CARE. DENIES HE WILL HAVE ANY NEEDS AT HOME. REFUSES ALL ASSISTANCE AT HOME. WILL CONTINUE TO FOLLOW. STATES HE CARE IS HERE AND HE WILL DRIVE SELF HOME. . BRENDAN JIN
[2019-08-21 12:00] VITALS: BP 131/65
--- NOTE | 2019-08-21 13:33 | NUR ---
PT COMPLAINING OF 4/10 LEFT ARM PAIN. MEDICATED WITH NORCO. WILL MONITOR FOR EFFECTIVENESS.
--- NOTE | 2019-08-21 15:00 | NUR ---
PT SLEEPING, APPEARS COMFORTABLE. EARLIER NORCO EFFECTIVE.
--- NOTE | 2019-08-21 15:58 | NUR ---
PT COMPLAINS OF 6/10 LEFT ARM. MEDICATED WITH MORPHINE PER PRN ORDER, ICE PACK APPLIED.
[2019-08-21 16:00] VITALS: BP 106/48
--- NOTE | 2019-08-21 17:58 | NUR ---
PT NOTES PAIN HAS LESSENED, EARLIER MORPHINE EFFECTIVE.
[2019-08-21 20:00] VITALS: BP 112/56
--- NOTE | 2019-08-21 21:01 | NUR ---
PT COMPLAINS OF 7/10 LEFT ARM PAIN. MEDICATED PER ORDER. WILL MONITOR FOR RELIEF. VOICES NO OTHER CONCERNS AT THIS TIME. RESTING IN BED. CALL LIGHT WITHIN REACH
--- NOTE | 2019-08-21 21:58 | NUR ---
PT STATING HE IS CURRENTLY HAVE SOME INDIGESTION. REQUESTING PRILOSEC. PT DENIED ANY CHEST PAIN/PRESSURE/TIGHTNESS. STATED HE TAKES PRILOSEC TWICE A DAY AT HOME BECAUSE HE HAS STOMACH ISSUES. SPOKE WITH DR POSADA WHO SAID TO GO AHEAD AND ORDER PRILOSEC 20MG PO BID. ORDERS REPEATED BACK.
--- NOTE | 2019-08-21 22:22 | NUR ---
PT STATING NORCO WAS PARTIALLY EFFECTIVE. REQUESTING MORPHINE. WILL MONITOR FOR RELIEF. RESTING IN BED. CALL LIGHT WITH REACH.
--- NOTE | 2019-08-21 23:04 | NUR ---
MORPHINE EFFECTIVE PER PT
[2019-08-22] VITALS: BP 115/52
--- NOTE | 2019-08-22 00:27 | NUR ---
24 HR chart check completed.
--- NOTE | 2019-08-22 02:06 | NUR ---
Patient resting quietly with no c/o or s/s of discomfort. Respirations easy and regular. Vital signs stable. No overt distress. Call light within reach. HISSOM,MAY
[2019-08-22 07:33] VITALS: BP 120/70
--- NOTE | 2019-08-22 07:56 | NUR ---
PT LAYING IN BED COMFORTABLY RESTING, NO S/S OF PAIN, ASSESSMENT COMPLETED, CALL BUTTON PLACED WITHIN REACH. BATSHEVA DOOLEY MCKENNA.RCC
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
--- NOTE | 2019-08-22 09:17 | NUR ---
OT NOTE PATIENT EDUCATED LUE EDEMA CONTROL TECHIQUES THAT INCLUDED FIST PUMPS WITH THE PATIENT TOLERATING X 5 REPS THEN STATING "THAT'S IT". EDUCATED PATIENT ICE PACK USE WITH EDUCATION USE IN 20 MINUTE INCREMENTS WITH PATIENT STATING THAT HE KEEPS ICE ON ALL NIGHT. EDUCATED PATIENT SAFETY SKIN INTEGRITY USE ICE PACK FOR PAIN AND EDEMA MANAGEMENT. PATIENT EDUCATED ELEVATING ARM ABOVE HEART LEVEL FOR EDEMA MANAGEMENT WITH PATIENT STATING THAT HE ALREADY KNOWS TO ELEVATE HIS ARM. PATIENT DECLINED FURTHER THER EXERCISES.PATIENT REPORTS THAT HE EXERCISES HIS OWN ARM. PATIENT STATED "I DON'T NEED THERAPY." SHARMAINE GENAO
--- NOTE | 2019-08-22 09:35 | NUR ---
DR CARTER MADE AWARE THAT MENTAL HEALTH PRACTITIONER NEEDS RENEWED OR D/C.
--- NOTE | 2019-08-22 10:05 | NUR ---
PT RESTING COMFORTABLY IN BED, ICE APPLIED TO LEFT HAND, NO COMPLAINTS AT THIS TIME. MCKENNA.CORBIN DOOLEY
--- NOTE | 2019-08-22 10:31 | NUR ---
PT RESTING IN BED, NO DISTRESS NOTED. ICE PACK TO LEFT FOREARM.
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
[2019-08-22 12:12] VITALS: BP 110/60
--- NOTE | 2019-08-22 12:19 | NUR ---
PT REASSESSED, SITTING COMFORTABLE ON THE SIDE OF BED, ORDERING LUNCH, NO COMPLAINTS AT THIS TIME. BATSHEVA ANDRES.RCC
--- NOTE | 2019-08-22 12:42 | NUR ---
EDUCATION PROGRAM COORDINATOR VISITED WITH PT. PT STATES HE WILL RETURN HOME ON DISCHARGE AND HAVE NO NEEDS. WILL CONTINUE TO FOLLOW.
--- NOTE | 2019-08-22 13:09 | NUR ---
PT IV TAKEN OUT, DISCHRAGE INSTRUCTIONS GIVEN, NO FURTHER QUESTIONS AT THIS TIME. BATSHEVA DOOLEY SPN.RCC
--- NOTE | 2019-08-22 13:45 | NUR ---
Discharge instructions reviewed with patient/family. Patient receptive and verbalizes understanding. Follow-up care arranged. Written instructions given to patient/family. LONDON HONG
--- NOTE | 2019-08-22 15:23 | NUR ---
OCCUPATIONAL THERAPY CO-SIGN I approve of the Occupational Therapy notes written above. ADOLFO JEFF OTR/Shaq
== END 2019-08-22 13:45 | disposition home or self-care (01) | DRG 605 ==
LOC: ED 18:46 → 4E 22:06 → EDHOLD 22:06 → 4E 22:16
PROVIDERS: Emergency Medicine; Internal Medicine; ADMIT Internal Medicine
DX: S50.12XA Contusion of left forearm, initial encounter (principal); I50.22 Chronic systolic (congestive) heart failure; D72.825 Bandemia; R74.0 Nonspecific elevation of levels of transaminase and lactic acid dehydrogenase [LDH]; I25.119 Atherosclerotic heart disease of native coronary artery with unspecified angina pectoris; J44.9 Chronic obstructive pulmonary disease, unspecified; E66.9 Obesity, unspecified; K21.9 Gastro-esophageal reflux disease without esophagitis; I25.5 Ischemic cardiomyopathy; I11.0 Hypertensive heart disease with heart failure; R07.81 Pleurodynia; I48.0 Paroxysmal atrial fibrillation; R00.1 Bradycardia, unspecified; E78.5 Hyperlipidemia, unspecified; R51 Headache; Z88.6 Allergy status to analgesic agent; Z88.8 Allergy status to other drugs, medicaments and biological substances; Z91.09 Other allergy status, other than to drugs and biological substances; I25.2 Old myocardial infarction; Z90.49 Acquired absence of other specified parts of digestive tract; Z95.5 Presence of coronary angioplasty implant and graft; Z95.0 Presence of cardiac pacemaker; Z87.891 Personal history of nicotine dependence; Z82.49 Family history of ischemic heart disease and other diseases of the circulatory system; Z80.0 Family history of malignant neoplasm of digestive organs; Z79.899 Other long term (current) drug therapy; Z79.82 Long term (current) use of aspirin; Z79.02 Long term (current) use of antithrombotics/antiplatelets; V09.09XA Pedestrian injured in nontraffic accident involving other motor vehicles, initial encounter; Y93.89 Activity, other specified; Y92.481 Parking lot as the place of occurrence of the external cause; Y99.8 Other external cause status

== ENCOUNTER → 2020-07-23 | Outpatient (CLI) | payer OTHER ==
[~2020-07-23] MED LIST changes: +AMIODARONE HYD200 MG PO; +COREG12.5 M1 PO; +DIGOX125 MCG PO; +EFFER-K20 MEQ PO; +FISH OIL CONC1000 M1 PO; +MULTIVITAMINS1 EAC5 PO
== END | disposition home or self-care (01) ==
LOC: CT 14:32
PROVIDERS: ATTEND Nurse Practitioner Family
DX: K42.9 Umbilical hernia without obstruction or gangrene (principal)